=== PATIENT | female | born 1970 | race Caucasian/White ===

== ENCOUNTER → 2021-02-28 | Outpatient (CLI) | payer OTHER | LOC: MRI 09:43 | DX: G40.909 Epilepsy, unspecified, not intractable, without status epilepticus (principal) | CPT/HCPCS: 70553; A9577 ==

== ENCOUNTER 2021-04-25 21:05 | Emergency (ER) | payer OTHER ==
[2021-04-25 22:17] LABS: RED BLOOD COUNT 4.79 M/UL (4.00-5.10); WHITE BLOOD COUNT 4.3 K/UL (4.5-11.0)
[2021-04-25 22:43] LABS: BUN/CREATININE RATIO 19 (0-10)
== END 2021-04-26 02:40 | disposition home or self-care (01) ==
LOC: ER1 21:05
PROVIDERS: Family Medicine
DX: R07.89 Other chest pain (principal); G40.909 Epilepsy, unspecified, not intractable, without status epilepticus; E87.6 Hypokalemia; Z88.5 Allergy status to narcotic agent
CPT/HCPCS: 71045; 80053; 82550; 82553; 83874; 84484; 85025; 85379; 93005; 99285

== ENCOUNTER 2021-06-01 15:14 | Emergency (ER) | payer OTHER ==
[2021-06-01 16:42] LABS: HEMOGLOBIN 14.2 gm/dl (12.3-15.3); RED BLOOD COUNT 4.53 M/UL (4.00-5.10); WHITE BLOOD COUNT 5.3 K/UL (4.5-11.0)
[2021-06-01 17:13] LABS: BUN/CREATININE RATIO 16 (0-10)
[2021-06-01] MEDS ORDERED: ATIVAN 1MG TABLE1 MG PO (20:23)
== END 2021-06-01 20:35 | disposition home or self-care (01) ==
LOC: ER1 15:14
PROVIDERS: Physician Assistant
DX: M54.81 Occipital neuralgia (principal); Z20.822 Contact with and (suspected) exposure to COVID-19
CPT/HCPCS: 0241U; 80053; 81001; 85025; 93005; 99284

== ENCOUNTER → 2022-01-09 | Outpatient (CLI) | payer OTHER ==
[~2022-01-09] MED LIST: ATIVAN 1MG TABLE1 MG PO
== END ==
LOC: KOH-I 15:48
DX: J20.9 Acute bronchitis, unspecified (principal)
CPT/HCPCS: 71046